=== PATIENT | female | born 1930 | race Caucasian/White ===

== ENCOUNTER 2018-05-14 04:16 | Observation (INO) | payer OTHER ==
[~2018-05-14] VITALS: Ht 165.1 cm; Wt 73.9 kg
[~2018-05-14 04:16] MED LIST: ACETAMINOPHEN650 M5 PO; ADULT LOW DOSE81 MG PO; ADVAIR; ADVAIR HFA 115-12 G1 INH; ALBUTEROL2.5 MG/32 IH; ALLERGY OTC; ARICEPT10 MG PO; ASPIRIN325 PO; B12 PO; CALCIUM; CEFDINIR300 MG PO; CHOLESTEROL; CIPROFLOXACIN500 M1 PO; COLACE100 MG PO; DUONEB 2.5-0.5 M3 ML INH; FLAXSEED OIL1000 MG PO; FOLBIC RF TABL1 EACH PO; FOLIC ACID1 MG PO; HYDROCORTISONE30 G9 TOP; IPRAT-ALBUT 0.5-3 ML PO; KEPPRA 500 MG500 MG PO; MULTI VITAMIN1 EACH PO; PROVENTIL IH; QUESTRAN PACKET4 GM; SYMBICORT160 MCG/4. INH; TESSALON200 MG PO; TRAZADONE; TUMS PO; VENTOLIN HFA 1818 GM INH; VIT B6 PO; VIT D PO; VITAMIN B 12
[2018-05-14 04:30] VITALS: BP 165/91
[2018-05-14] MEDS ORDERED: METFORMIN HCL500 MG (04:38)
[2018-05-14 04:42] LABS: POC ANION GAP 23 mmol/L (10-20); POC BUN < 3 mg/dL (8-26); POC CA IONIZED 4.8 mg/dL (4.5-5.3); POC CHLORIDE 97 mmol/L (98-109); POC CREATININE 0.9 mg/dL (0.6-1.3); POC GLUCOSE 175 mg/dL (70-105); POC POTASSIUM 4.2 mmol/L (3.5-4.9); POC SODIUM 140 mmol/L (138-146); POC TCO2 26 mmol/L (24-29)
[2018-05-14 05:23] LABS: ANION GAP 10 mmol/L (7-16); BUN 28 mg/dL (7-18); CALCIUM 9.6 mg/dL (8.5-10.1); CHLORIDE 103 mmol/L (98-107); CO2 27 mmol/L (21-32); GLUCOSE 169 mg/dL (70-99); POTASSIUM 4.5 mmol/L (3.5-5.1); SODIUM 140 mmol/L (136-145)
[2018-05-14 05:33] LABS: ALBUMIN 3.5 g/dL (3.4-5.0); ALKALINE PHOSPHATASE 94 U/L (46-116); SGOT 22 U/L (15-37); SGPT 22 U/L (30-65); TOTAL BILIRUBIN 0.3 mg/dL (<0.1-1.0); TOTAL PROTEIN 7.4 g/dL (6.4-8.2); TROPONIN-I LEVEL <0.06 ng/mL (<0.06)
[2018-05-14 05:34] LABS: PROTIME 10.3 Seconds (9.20-11.50)
[2018-05-14 07:52] LABS: HEMOGLOBIN ND gm/dL (12.0-15.0); RBC ND mil/uL (4.20-5.00); WBC ND thou/uL (4.0-11.0)
[2018-05-14 07:53] LABS: HEMATOCRIT ND % (37.0-47.0); MCH ND pg (26.0-34.0); MCV ND fL (80.0-100.0)
[2018-05-14 07:54] LABS: MCHC ND g/dL (28.0-37.0); RDW-CV ND % (10.5-14.5)
[2018-05-14 07:55] LABS: MPV ND fl. (7.2-11.1); PLATELET COUNT* ND thou/uL (150-400)
[2018-05-14 07:55] LABS: ABSOLUTE EOSINOPHILS 0.1 thou/uL (0.0-0.7); ABSOLUTE LYMPHOCYTES 1.4 thou/uL (0.8-5.3); ABSOLUTE MONOCYTES 0.5 thou/uL (0.0-1.2); ABSOLUTE NEUTROPHILS 3.7 thou/uL (1.6-8.1); BASOPHILS 0.7 %; EOSINOPHILS 1.2 %; HEMATOCRIT 43.9 % (37.0-47.0); HEMOGLOBIN 14.7 gm/dL (12.0-15.0); LYMPHOCYTES 23.9 %; MCH 31.5 pg (26.0-34.0); MCHC 33.4 g/dL (28.0-37.0); MCV 94.4 fL (80.0-100.0); MONOCYTES 8.6 %; MPV 9.2 fl. (7.2-11.1); NUCLEATED RBCS 0 /100WBC; PLATELET COUNT* 160 thou/uL (150-400); POLYS 65.6 %; RBC 4.65 mil/uL (4.20-5.00); RDW-CV 13.5 % (10.5-14.5); WBC 5.7 thou/uL (4.0-11.0)
[2018-05-14 08:12] VITALS: BP 132/55
[2018-05-14] MEDS ORDERED: LIPITOR10 MG PO (08:46)
[2018-05-14 09:14] VITALS: BP 139/67
[2018-05-14 10:10] LABS: CHOLESTEROL 161 mg/dL (<200); HDL CHOLESTEROL 72 mg/dL (>40); LDL CHOLESTEROL 78 mg/dL (<100); TC:HDL 2.2 Ratio (Not establshd); TRIGLYCERIDE 57 mg/dL (<150); VLDL 11 mg/dL (<40)
[2018-05-14 10:28] VITALS: BP 139/67
[2018-05-14 11:10] LABS: SERUM ASSESSMENT Clear
[2018-05-14 12:00] VITALS: BP 148/69
--- NOTE | 2018-05-14 17:29 | EKG ---
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1930 Requested By: Vaibhav Rinaldi Order Number: [id number] MD: Erasto Franco Measurements Intervals [place] Rate: 89 P: VA: QRS: -88 QRSD: 153 T: 84 QT: 467 QTc: 569 Interpretive Statements Sinus rhythm, possible pacemaker mediated tachycardia, intermittent No further analysis attempted due to paced rhythm Compared to ECG 11/27/2016 08:25:27 No significant changes Electronically Signed On 05-14-2018 17:28:51 [employer] SOLUTION ARCHITECT by Erasto Franco [email or web address] <ELECTRONICALLY SIGNED> By: Erasto Franco MD, FACC 05/14/18 1728 0423 0423 Erasto Franco MD, FACC /EPI
[2018-05-14 21:10] LABS: GLYCOHEMOGLOBIN (HGB A1C) 7.6 % (4.8-5.6)
--- NOTE | 2018-05-23 15:44 | EEG ---
[address] [address] EEG STUDY REPORT Name: GEOVANY LINDQUIST Room: [address] Rekha#: [id number] Admission: 05/14/18 Attend Phys: Vikram Napoles MD Discharge: 05/14/18 Date of : [birth year] Report #: [id number] THIS REPORT FOR: //name// CC: Vikram Napoles Andrea Boyer DATE OF SERVICE: 05/14/2018 This patient is being evaluated for altered mental status. She has a question of seizures in the past. Background activity in this patient's EEG is about 11 Hz and 40 microvolts. The patient went to sleep that is associated with bilaterally symmetrical sleep spindle and vertex sharp waves. Throughout the record, no active epileptiform activity was noticed. IMPRESSION: This patient's EEG is somewhat intermixed with theta range slowing on both sides. That is a nonspecific abnormality, which can occur with drowsiness and effect of psychotropic medication, etc. No active epileptiform activity was noticed during this record. Thank you very much for this referral. <ELECTRONICALLY SIGNED> By: Jermaine Crandall MD 05/23/18 1544 1459 1525Jermaine Crandall MD /nt
--- NOTE | 2018-05-23 15:44 | CON ---
[address] [address] CONSULTATION Name: GEOVANY LINDQUIST Room: [address] Sumanth Da Silva#: [id number] Admission: 05/14/18 Attend Phys: Vikram Napoles MD Discharge: 05/14/18 Date of : [birth year] Report #: [id number] THIS REPORT FOR: //name// CC: Vikram Napoles Andrea Tapiadov DATE OF SERVICE: 05/14/2018 HISTORY OF PRESENT ILLNESS: This is an 87-year-old female patient who was evaluated by me for confusion. I saw this patient earlier today. I talked to the patient's daughter. She lives with her daughter. She was somewhat confused, but the biggest problem when she noticed, when she got up at 3:00 that her left eye was red and she has no vision there. She has very poor vision in the right eye in the baseline. Left eye was good eye and she lost her vision there. She had a pretty extensive hemorrhage there also when it happened. When I saw her, she has absolutely no vision there. She cannot even count fingers, only when I flash light there she said she can probably see the light. If she had the confusion, she did not have it when I saw this patient. She was pretty much back to her baseline. I reviewed her records in the computer. She has seen Dr. Addison, neurologist, in the past and she was diagnosed with a seizure. She is on Topamax since then. In the Emergency Room, she had a CT angiogram of the head and neck, which was unremarkable. She has a pacemaker. We do not know whether her pacemaker is MRI compatible or not, but even if it is compatible, it will take a little while to contact the underwriting account representative and set up the MRI. 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 She is also very hard of hearing. She had a history of stroke in the past. She has a history of seizures in the past. PAST MEDICAL HISTORY: Positive for seizure. FAMILY HISTORY: Negative for early age stroke. SOCIAL HISTORY: She lives with the daughter. PHYSICAL EXAMINATION: GENERAL: She is alert. She can tell me what month it is. She can tell me what day it is. Cranial nerve examinations indicate that she does not have any vision in the left eye, except the light perception which she has. She moves all 4 extremities. There is no meningeal sign. I had a long discussion with this patient. I talked to Dr. Garcia multiple times. I think the first thing we need to address in this patient is her visual loss. She has very little vision in the right eye [place] [address] CONSULTATION Name: LEXAGEOVANY L Room: [address] Sumanth Da Silva#: [id number] Admission: 05/14/18 Attend Phys: Vikram Napoles MD Discharge: 05/14/18 Date of : [birth year] Report #: [id number] left eye. She also has hemorrhage there. 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 So, I called Dr. Yancey to see if he can see this patient emergently in his office. He agreed to see this patient in the office and he indicated the patient needs to be in his office and not on the floor. I discussed with Dr. Garcia that we will increase the Keppra to 750 b.i.d. in case she is having more seizures. For that, the patient should come to my office today or tomorrow after the Ophthalmology examination is done and I will address that question. The biggest thing is to get some help in the ophthalmological problem and that is the most important. We do need a sed rate on her, but the biggest thing she needs is an Ophthalmology evaluation and the only way we can get is if we can dismiss her and that option was discussed with the patient's daughter and that is what the plan is. More than 50 minutes of time was spent taking care of this patient today and majority of that time was spent counseling the patient's family and patient on above matters as well as coordinating her care. <ELECTRONICALLY SIGNED> By: Jermaine Crandall MD 05/23/18 1544 1556 [id number] Crandall MD /nt
== END 2018-05-14 13:25 | disposition home or self-care (01) ==
LOC: M.ERS 04:16 → M.TBA-ER 05:48 → M.2W 05:48
PROVIDERS: Family Medicine; Internal Medicine; ADMIT Internal Medicine
DX: R41.82 Altered mental status, unspecified (principal); F03.90 Unspecified dementia, unspecified severity, without behavioral disturbance, psychotic disturbance, mood disturbance, and anxiety; E11.8 Type 2 diabetes mellitus with unspecified complications; J44.9 Chronic obstructive pulmonary disease, unspecified; H11.32 Conjunctival hemorrhage, left eye; E78.5 Hyperlipidemia, unspecified; H53.8 Other visual disturbances; G47.00 Insomnia, unspecified; E11.9 Type 2 diabetes mellitus without complications; Z86.73 Personal history of transient ischemic attack (TIA), and cerebral infarction without residual deficits; Z90.710 Acquired absence of both cervix and uterus; Z90.49 Acquired absence of other specified parts of digestive tract; Z85.038 Personal history of other malignant neoplasm of large intestine; Z98.890 Other specified postprocedural states; Z79.899 Other long term (current) drug therapy; Z79.82 Long term (current) use of aspirin; Z95.0 Presence of cardiac pacemaker

== ENCOUNTER → 2018-06-05 | Outpatient (CLI) | payer OTHER ==
[~2018-06-05] MED LIST changes: +LIPITOR10 MG PO; +METFORMIN HCL500 MG
== END ==
LOC: M.LAB 12:10
DX: F03.90 Unspecified dementia, unspecified severity, without behavioral disturbance, psychotic disturbance, mood disturbance, and anxiety (principal); R53.83 Other fatigue; R56.9 Unspecified convulsions; Z86.73 Personal history of transient ischemic attack (TIA), and cerebral infarction without residual deficits; Z68.27 Body mass index [BMI] 27.0-27.9, adult

== ENCOUNTER 2019-04-23 13:27 | Emergency (ER) | payer OTHER ==
[~2019-04-23] VITALS: Ht 165.1 cm; Wt 71.2 kg
[2019-04-23 14:46] LABS: ABSOLUTE LYMPHOCYTES 1.1 thou/uL (0.8-5.3); ABSOLUTE MONOCYTES 0.7 thou/uL (0.0-1.2); ABSOLUTE NEUTROPHILS 5.7 thou/uL (1.6-8.1); BASOPHILS 0.6 %; EOSINOPHILS 0.1 %; HEMATOCRIT 41.9 % (37.0-47.0); HEMOGLOBIN 14.8 gm/dL (12.0-15.0); LYMPHOCYTES 14.6 %; MCH 33.1 pg (26.0-34.0); MCHC 35.3 g/dL (28.0-37.0); MCV 93.9 fL (80.0-100.0); MPV 9.1 fl. (7.2-11.1); NUCLEATED RBCS 0 /100WBC; PLATELET COUNT* 151 thou/uL (150-400); POLYS 75.7 %; RBC 4.46 mil/uL (4.20-5.00); RDW-CV 13.5 % (10.5-14.5); WBC 7.6 thou/uL (4.0-11.0)
[2019-04-23 14:51] LABS: URINE BILIRUBIN NEGATIVE (Negative); URINE BLOOD 1+ (Negative); URINE CLARITY CLEAR; URINE COLOR YELLOW; URINE GLUCOSE-RANDOM 2+ (Negative); URINE KETONES NEGATIVE (Negative); URINE LEUKOCYTES-REFLEX NEGATIVE (Negative); URINE NITRITE-REFLEX NEGATIVE (Negative); URINE PROTEIN 1+ (Negative); URINE UROBILINOGEN 0.2 E.U./dl (0.2-1.0)
[2019-04-23 15:00] LABS: CALCIUM 9.3 mg/dL (8.5-10.1); POTASSIUM 3.9 mmol/L (3.5-5.1)
[2019-04-23 15:02] LABS: SQUAMOUS >10 Many /LPF (0-3)
[2019-04-23 15:04] LABS: CRYSTALS None Seen /LPF (None Seen); HYALINE CASTS 0-3 Few /LPF (None Seen); MUCUS None Seen strn/LPF (None Seen); URINE RBC 0-2 Rare /HPF (0-2); URINE WBC-REFLEX 0-5 Rare /HPF (0-5)
[2019-04-23 15:05] LABS: ALBUMIN 2.8 g/dL (3.4-5.0); TOTAL BILIRUBIN 0.6 mg/dL (<0.1-1.0); TOTAL PROTEIN 7.1 g/dL (6.4-8.2)
[2019-04-23] MEDS ORDERED: NORCO 5-325 TA1 EAC1 PO (17:16)
[2019-04-23] MEDS ORDERED: ROBAXIN 750 MG750 MG PO (17:16)
[2019-04-23 17:48] VITALS: BP 129/63
== END 2019-04-23 17:49 | disposition home or self-care (01) ==
LOC: M.ERS 13:27
PROVIDERS: Nurse Practitioner Family
DX: M54.2 Cervicalgia (principal); J44.9 Chronic obstructive pulmonary disease, unspecified; E11.9 Type 2 diabetes mellitus without complications; E78.5 Hyperlipidemia, unspecified; F03.90 Unspecified dementia, unspecified severity, without behavioral disturbance, psychotic disturbance, mood disturbance, and anxiety; Z87.440 Personal history of urinary (tract) infections; Z96.652 Presence of left artificial knee joint; Z90.710 Acquired absence of both cervix and uterus; Z90.49 Acquired absence of other specified parts of digestive tract; Z79.899 Other long term (current) drug therapy; Z86.73 Personal history of transient ischemic attack (TIA), and cerebral infarction without residual deficits; Z85.038 Personal history of other malignant neoplasm of large intestine; Z86.711 Personal history of pulmonary embolism; Z90.89 Acquired absence of other organs; Z95.0 Presence of cardiac pacemaker; Z88.5 Allergy status to narcotic agent; Z88.0 Allergy status to penicillin